=== PATIENT | female | born 2000 | race Two or more races ===

== ENCOUNTER 2024-07-02 10:39 | Emergency (ER) | payer SELFPAY ==
[~2024-07-02] VITALS: Ht 161.3 cm; Wt 71.4 kg
[2024-07-02 10:55] VITALS: PULSE 99; RESP 20; TEMP 98; O2SAT 96
[2024-07-02] MEDS ORDERED: MUPIROCIN22 GM TOP (11:56)
== END 2024-07-02 12:07 | disposition home or self-care (01) ==
LOC: FSED 10:44
DX: R11.0 Nausea (principal); L73.9 Follicular disorder, unspecified; Z32.01 Encounter for pregnancy test, result positive; J45.909 Unspecified asthma, uncomplicated
CPT/HCPCS: 0223U; 81003; 81025; 87400; 99284